=== PATIENT | male | born 1955 | race Caucasian/White ===

== ENCOUNTER → 2016-08-22 | Outpatient (CLI) | payer OTHER ==
[~2016-08-22] MED LIST: FLEXERIL PO; ISENTRESS100 MG PO; LEVAQUIN 750 M750 MG PO; LEXIVA700 MG PO; NAPROSYN500 M1 PO; NORCO 5-325 TA1 EACH PO; NORVIR100 MG PO; PRAVASTATIN SOD20 MG PO; TRUVADA1 EAC1 PO
== END ==
LOC: CAT 18:09
DX: L03.213 Periorbital cellulitis (principal); R60.9 Edema, unspecified

== ENCOUNTER → 2017-06-27 | Outpatient (CLI) | payer OTHER | LOC: RAD 10:50 | DX: M41.84 Other forms of scoliosis, thoracic region (principal); R53.82 Chronic fatigue, unspecified ==

== ENCOUNTER 2018-12-17 19:08 | Inpatient (IN) | payer OTHER ==
[~2018-12-17] VITALS: Ht 175.3 cm; Wt 68.9 kg
[2018-12-17 19:12] VITALS: BP 123/73
[2018-12-17] MEDS ORDERED: AMLODIPINE BESY10 MG PO (19:19)
[2018-12-17] MEDS ORDERED: GENVOYA TABLET1 EACH PO (19:19)
[2018-12-17] MEDS ORDERED: FLOMAX0.4 MG PO (19:20)
[2018-12-17 20:15] LABS: HEMATOCRIT 39.6 % (42.0-52.0); HEMOGLOBIN 13.6 gm/dL (14.0-18.0); MCH 32.5 pg (26.0-34.0); MCHC 34.4 g/dL (28.0-37.0); MCV 94.4 fL (80.0-100.0); PLATELET COUNT 196 thou/uL (150-400); RDW 14.8 % (10.5-14.5); WBC 5.2 thou/uL (4.0-11.0)
[2018-12-17 20:22] LABS: ANION GAP 5 mmol/L (7-16); BUN 19 mg/dL (7-18); CALCIUM 8.7 mg/dL (8.5-10.1); CHLORIDE 102 mmol/L (98-107); CO2 33 mmol/L (21-32); CREATININE 1.5 mg/dL (0.7-1.3); GLUCOSE 110 mg/dL (74-106); POTASSIUM 3.1 mmol/L (3.5-5.1); SODIUM 140 mmol/L (136-145)
[2018-12-17 20:28] LABS: DIRECT BILIRUBIN < 0.1 mg/dL (<0.1-0.3); SGOT 30 U/L (15-37); SGPT 22 U/L (30-65); TOTAL BILIRUBIN 0.4 mg/dL (<0.1-1.0)
[2018-12-17 20:30] LABS: TROPONIN-I <0.06 ng/mL (<0.06)
[2018-12-17 20:46] LABS: APTT 25.6 Seconds (24.5-32.8); PROTIME 10.2 Seconds (9.3-11.4)
[2018-12-17 20:56] LABS: ABSOLUTE NEUTROPHILS 2.7 thou/uL (1.4-8.2)
[2018-12-17 20:57] LABS: PLATELET ESTIMATE NORMAL
[2018-12-17 22:47] VITALS: BP 106/64
[2018-12-17 23:06] VITALS: BP 106/64
[2018-12-17 23:27] VITALS: BP 115/69
--- NOTE | 2018-12-18 04:32 | NUR ---
Received pt from ED at 2145. Pt resting in bed. AOX4. VSS. Did well with orthostatic BP. Up at [place]. No skin issues. Has IV's on Right AC and Right FA. Informed Dr. Sharpe pt is on unit. Sent Stool and urine sample to lab. Pt NPO since midnight. Pt is on Isolation for rule out C.diff and none respiratory mrsa on previous hospital admission. No identified needs at the moment. Will continue to monitor.
[2018-12-18 04:45] VITALS: BP 78/42
[2018-12-18 06:10] VITALS: BP 91/51
[2018-12-18 07:48] VITALS: BP 88/42
--- NOTE | 2018-12-18 08:25 | EKG ---
[address] [place] [address] ELECTROCARDIOGRAM REPORT Name: CHONG CLARK Room #: 453-P ADM IN M.R.#: [id number] ������������������ Admission: 12/17/18 ������������������ Attend Phys: Mars Sharpe MD Discharge: ������������������ Date of : 53 Report #: [id number] ����������������������������������������������������������������� [id number] THIS REPORT FOR: //name// [facility] ED Test Date: 2018-12-17 Test Time: 19:59:45 Pat Name: CHONG CLARK Department: Room: [facility] Gender: M Elderly Companion: [email or web address] : 1955 Requested By: Chong Kline Order Number: [id number] MD: Tony Reddy Measurements Intervals [place] Rate: 90 P: 81 TN: 124 QRS: 92 QRSD: 97 T: 67 QT: 355 QTc: 435 Interpretive Statements Sinus rhythm Right axis deviation Nonspecific ST segment abnormality No previous ECG available for comparison Electronically Signed On 12-18-2018 8:25:42 CDT by Tony Reddy [email or web address] ��������������������������������������������� <ELECTRONICALLY SIGNED> ���������������������������������������� By: Tony Reddy MD, [facility] ��������������������������������������������� 12/18/18824 58 58 Tony Reddy MD, FACC /EPI
[2018-12-18 12:44] LABS: HEMATOCRIT 33.7 % (42.0-52.0); HEMOGLOBIN 11.5 gm/dL (14.0-18.0); MCH 32.8 pg (26.0-34.0); MCHC 34.3 g/dL (28.0-37.0); MCV 95.7 fL (80.0-100.0); PLATELET COUNT 164 thou/uL (150-400); RBC 3.52 mil/uL (4.50-6.00); RDW 15.2 % (10.5-14.5); WBC 3.9 thou/uL (4.0-11.0)
[2018-12-18 13:08] LABS: ALBUMIN 2.4 g/dL (3.4-5.0); CALCIUM 8.1 mg/dL (8.5-10.1); CREATININE 1.3 mg/dL (0.7-1.3); TOTAL BILIRUBIN 0.2 mg/dL (<0.1-1.0); TOTAL PROTEIN 5.7 g/dL (6.4-8.2)
[2018-12-18 13:39] LABS: ABSOLUTE NEUTROPHILS 1.8 thou/uL (1.4-8.2); ANISOCYTOSIS SLIGHT; ATYPICAL LYMPHS 3 %; POIKILOCYTOSIS SLIGHT
--- NOTE | 2018-12-18 14:23 | NUR ---
PT ADMITTED RELATED TO Diarrhea, Nausea and Abd pain. CM REVIEWED CHART AND SPOKE WITH CARE TEAM. CM MET WITH PT AT BEDSIDE THIS DAY. PT IS A&O X4. CM ROLE INTRODUCED. PT INDICATED HE LIVES IN A HOUSE WITH HIS PARTNER WITH 12 STEPS TO ENTER AND 10 STEPS INSIDE. 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 PT INDICATED NO DME OR HH HX. PT INDICATED HE PLANS TO RETURN HOME ONCE MEDICALLY STABLE. CM TO FOLLOW INDICATED WITH DC PLANNING.
[2018-12-18 16:57] LABS: URINE BILIRUBIN NEGATIVE (Negative); URINE BLOOD NEGATIVE (Negative); URINE CLARITY CLEAR; URINE COLOR YELLOW; URINE GLUCOSE-RANDOM* NEGATIVE (Negative); URINE KETONES NEGATIVE (Negative); URINE LEUKOCYTES-REFLEX NEGATIVE (Negative); URINE NITRITE-REFLEX NEGATIVE (Negative); URINE PROTEIN (DIPSTICK) 1+ (Negative); URINE SPECIFIC GRAVITY <= 1.005 (1.005-1.035); URINE UROBILINOGEN 0.2 E.U./dl (0.2-1.0)
[2018-12-18 17:14] LABS: BACTERIA-REFLEX 1-9 Few /HPF (None Seen); CASTS None Seen /LPF (None Seen); CRYSTALS None Seen /LPF (None Seen); SQUAMOUS None Seen /LPF (0-3); URINE RBC None Seen /HPF (0-2); URINE WBC-REFLEX 0-5 Rare /HPF (0-5)
--- NOTE | 2018-12-18 20:10 | NUR ---
Received awake on bed. Due medications given as prescribed. On NPO- advised. With IVF- patent and infusing well. Maintained on isolation. Had CT abdomen w/Pelvis w/o contrast today. Patient with consult to Dr Gerard- US called in consults. Patient for stool sample- still waiting for pt to open bowels, for urinalysis with culture- specimen sent. With IV abx prescribed, given. Senior staff asked to insert new IV for antibiotics and IV fluids. Pharmacy staff came in and said than HIV meds are not stocked up in pharmacy, relative to bring in meds from home and to inform pharmacy once brought in- Handed over to night staff. Patient seen by GI doctor today- for EGD tomorrow, verified with GI lab, will have pt scheduled tomorrow at 8am-handed over to night staff, for NPO post midnight.
[2018-12-18 21:05] VITALS: BP 100/53
[2018-12-19 04:07] VITALS: BP 100/65
--- NOTE | 2018-12-19 05:42 | NUR ---
PATIENT ASSESSED AND IS ALERT X 4. WSKIN WARM AND DRY RESP EVEN AND UNLABORED. LUNGS CTA.DENIES ANY ABDOMEN PAIN THIS SHIFT. CONT ALL IV AND ANTIBIOTICS THROUGHOUT THE SHIFT. IV SITE [place] HEALTHY. NPO AFTER MIDNIGHT. HAD A SHOWER5 FOR AM SURGERY. SLEPT WELL. ON ROOM AIR. NO BM THIS SHIFT. HEART RATE STEADY AND REGULAR. UP WITH HELP TO BATHROOM BECAUSE OF IV'S.NO FEVER NOTED. CONT PLAN OF CARE.READY FOR SURGERY. NPO.
[2018-12-19 07:24] VITALS: BP 102/71
--- NOTE | 2018-12-19 07:45 | H ---
[facility] [place] [address] HISTORY AND PHYSICAL Name: CHONG CLARK Room #: 453-P ADM IN M.R.#: [id number] Admission: 12/17/18 ������������������ Attend Phys: Mars Sharpe MD Discharge: ������������������ Date of : 53 Report #: [id number] THIS REPORT FOR: //name// CC: Mars Posey DATE OF SERVICE: 12/18/2018 ATTENDING PHYSICIAN: Claudio Posey M.D. CHIEF COMPLAINT: Fever and diarrhea with blood loss. HISTORY OF PRESENT ILLNESS: The patient is a 63-year-old gentleman who presented to the Emergency Room last night with complaints of bloody stools for the last 3 days. There was report of a high temperature as well and some mild abdominal discomfort. He has had diarrhea off and on for 3 days and has passed dark blood-appearing stool at times. Overnight, he has received IV antibiotics and has had no further symptoms. PAST MEDICAL HISTORY: HIV infection, dyslipidemia, history of skin cancer, osteoarthritis, history of pneumonia and history of MRSA infection. He had hypertension. PAST SURGICAL HISTORY: Cholecystectomy, appendectomy, left rotator cuff and facial MRSA cellulitis in 2017. FAMILY HISTORY: Noncontributory. SOCIAL HISTORY: He has a prior tobacco history, none currently. No chronic alcohol use. ALLERGIES: None. MEDICATIONS: Albuterol, Flomax, naproxen, Crestor, amlodipine, Genvoya and tramadol. REVIEW OF SYSTEMS: Denies headache, chest pain, shortness of breath, abdominal pain, dysuria, syncope or fall. PHYSICAL EXAMINATION: VITAL SIGNS: Temperature 36.6, pulse 97, respirations 20, blood pressure 88/42 and O2 sat 97% on room air. GENERAL: He is awake and alert, lying in bed, in no distress. HEAD AND NECK: Unremarkable. LUNGS: Clear. HEART: Regular. [facility] [address] [place] [address] HISTORY AND PHYSICAL Name: CHONG CLARK Room #: 453-P ADM IN ..#: [id number] Admission: 12/17/18 ������������������ Attend Phys: Mars Sharpe MD Discharge: ������������������ Date of : 53 Report #: [id number] ABDOMEN: Soft. Normoactive bowel sounds. No rebound or guarding. EXTREMITIES: No cyanosis, clubbing or edema. NEUROLOGIC: Cranial nerves intact. Speech is fluent. Motor strength intact throughout. LABORATORY DATA: Albumin is 3. Creatinine was 1.5, BUN is 19 and potassium 3.1. White count was normal, but he did have a left shift with 19% bands. ASSESSMENT: 1. Melena. 2. Diarrhea, possible infectious source. 3. Hypertension. 4. Chronic human immunodeficiency virus infection. PLAN: CT of the abdomen will be obtained with IV fluid support and continued IV antibiotics. I spoke with Dr. Mars Sharpe regarding his situation. ��������������������������������������������� <ELECTRONICALLY SIGNED> ���������������������������������������� By: Eduardo Sorto MD ��������������������������������������������� 12/19/18 0745 1141 1153 Eduardo Sorto MD /linda
--- NOTE | 2018-12-19 08:00 | NUR ---
PT LEFT FOR EGD AROUND THIS TIME. PT LEFT VIA CART. PT NPO SINCE MIDNIGHT.
--- NOTE | 2018-12-19 10:30 | NUR ---
PT BACK FROM EGD AT THIS TIME. PT ALERT, RESTING WITH EYES CLOSED. PT ABLE TO HAVE REGULAR DIET AT THIS TIME.
--- NOTE | 2018-12-19 11:42 | HC ---
[facility] [place] [address] CONSULTATION Name: CHONG CLARK Room #: 453-P [facility] IN M.R.#: [id number] Admission: 12/17/18 ������������������ Attend Phys: Mars Sharpe MD Discharge: ������������������ Date of : 53 Report #: [id number] THIS REPORT FOR: //name// CC: MARS Snyder Kalpesh DATE OF SERVICE: 12/18/2018 REASON FOR CONSULTATION: The patient is a 63-year-old male who presented with fever and melanotic stools. HISTORY OF PRESENT ILLNESS: This patient reports that about 4 days ago, he had a black tarry stool. There is no prior history of ulcer disease. He does take 500 mg of naproxen daily. He did not have any significant abdominal pain. He reports 4 days ago, the stool was very black; however, it is a little bit metal tube cutter in color the past several days. He did not have any orthostatic complaints such as dizziness, lightheadedness or loss of consciousness. He reports, however, he came to the Emergency Room last evening because he had a fever of 104 degrees. It is of interest to note that there is not a mention of fever in the ER records and he has been completely afebrile since here in the hospital. In addition, his hemoglobin was 13.6 last evening, today was 11.5. Stool in the ER was reported weakly Hemoccult positive. With regard to the fever, he has not had any other complaints such as cough, chills, shortness of breath or rhinorrhea. It is noted he is HIV positive and is currently receiving treatment for HIV. PAST MEDICAL HISTORY: He has high blood pressure, elevated cholesterol and he does have HIV disease. PAST SURGICAL HISTORY: Laparoscopic cholecystectomy, appendectomy, rotator cuff surgery and removal of skin cancers, basal cell. ALLERGIES: No known drug allergies. MEDICATIONS: Usual home medications, naproxen 500 mg daily, pravastatin 20 mg daily, Genvoya 1 at bedtime, amlodipine 15 mg at bedtime, tamsulosin 0.4 mg at bedtime. FAMILY HISTORY: Father had colon cancer that was diagnosed in his mid 50s. SOCIAL HISTORY: He is retired, previously worked in a [employer] center. He quit smoking 4 years ago. He does not consume alcohol. [facility] [address] [place] [address] CONSULTATION Name: CHONG CLARK Room #: 453-P [facility] IN M.R.#: [id number] Admission: 12/17/18 ������������������ Attend Phys: Mars Sharpe MD Discharge: ������������������ Date of : 53 Report #: [id number] REVIEW OF SYSTEMS: GENERAL: Fever as noted above. He has not had any chills or weight loss. HEENT: No change in vision, hearing or sores in the mouth. CENTRAL NERVOUS SYSTEM: No focal weakness, numbness, loss of consciousness, seizures or strokes. PULMONARY: No cough, pneumonia or tuberculosis. CARDIOVASCULAR: No chest pain, chest tightness or palpitations. GASTROINTESTINAL: No nausea, vomiting, hematemesis. Black stool as noted above. He has had colonoscopies and polyps removed. Last colonoscopy was about a year ago. GENITOURINARY: He does take tamsulosin. Denies kidney problems or bladder problems. MUSCULOSKELETAL: Has arthritis in his hands. SKIN: Skin cancers removed. PSYCHIATRIC: No depression or bipolar illness. ENDOCRINE: He is not aware of diabetes or thyroid problems. No weight loss. HEMATOLOGIC: Skin cancers removed. No other cancers or blood dyscrasias. PHYSICAL EXAMINATION: GENERAL: The patient is a well-developed, well-nourished, pleasant male who is awake, alert and oriented, in no acute distress. VITAL SIGNS: Blood pressure 82/42. HEENT: Anicteric. Pupils equal, round. Oropharynx clear. NECK: Supple. CHEST: Clear. HEART: Regular rate and rhythm, normal S1 and S2. ABDOMEN: Normal bowel sounds, soft, nontender, without hepatosplenomegaly or masses. RECTAL: Not done. EXTREMITIES: Without cyanosis, clubbing or edema. NEUROLOGIC: Oriented to person, place and time. Moves all 4 extremities well. LABORATORY DATA: White count of 3.9, hemoglobin 11.5 down from 13.6, platelet count 164,000. INR normal at 1. Electrolytes notable for decreased potassium at 3.0, otherwise unremarkable. BUN and creatinine are unremarkable. LFTs are normal. Albumin 2.4. Stool is negative for C. difficile. ASSESSMENT: 1. Melena, use of nonsteroidals. 2. Human immunodeficiency virus disease. 3. Reported fever, none in the hospital. 4. High blood pressure. 5. Hypercholesterolemia. 6. Family history of colon cancer, father. 7. Personal history of colon polyps. [facility] [address] [place] [address] CONSULTATION Name: CHONG CLARK Room #: 453-P ADM IN M.R.#: [id number] Admission: 12/17/18 ������������������ Attend Phys: Mars Sharpe MD Discharge: ������������������ Date of : 53 Report #: [id number] RECOMMENDATIONS: 1. Continue to monitor hemoglobin. 2. Tentative plan potentially for upper endoscopy tomorrow. 3. PPI or H2 jonas. ��������������������������������������������� <ELECTRONICALLY SIGNED> ���������������������������������������� By: Malachi Bruno MD ��������������������������������������������� 12/19/18 1142 1428 0029 Malachi Bruno MD /nt
[2018-12-19 14:33] VITALS: BP 120/61
--- NOTE | 2018-12-19 15:39 | NUR ---
PT TOLERATING DIET, NO EMESIS OR PAIN COMPLAINTS.
[2018-12-19 20:12] VITALS: BP 109/61
[2018-12-20 04:30] VITALS: BP 111/54
[2018-12-20 04:57] LABS: HEMATOCRIT 37.3 % (42.0-52.0); HEMOGLOBIN 12.5 gm/dL (14.0-18.0); MCH 32.2 pg (26.0-34.0); MCHC 33.6 g/dL (28.0-37.0); MCV 95.7 fL (80.0-100.0); RBC 3.89 mil/uL (4.50-6.00); RDW 15.6 % (10.5-14.5); WBC 5.3 thou/uL (4.0-11.0)
--- NOTE | 2018-12-20 04:58 | NUR ---
Pt. rested quietly at intervals during the night when checked on during frequent rounds. He offers no c/o pain or nausea. No noted loose stools. Pt. requesting a xanax last night. Spoke with with new orders for xanax at (see cpoe).
[2018-12-20 05:08] LABS: CALCIUM 8.5 mg/dL (8.5-10.1); CREATININE 1.4 mg/dL (0.7-1.3); POTASSIUM 4.2 mmol/L (3.5-5.1)
[2018-12-20 08:00] VITALS: BP 126/77
[2018-12-20] MEDS ORDERED: OMEPRAZOLE40 MG PO (08:47)
[2018-12-20 10:26] VITALS: BP 126/77
--- NOTE | 2018-12-20 13:42 | P ---
[facility] [place] [address] PROCEDURE REPORT Name: CHONG CLARK Room #: 453-P [facility] IN M.R.#: [id number] Admission: 12/17/18 ������������������ Attend Phys: Mars Sharpe MD Discharge: ������������������ Date of : 53 Report #: [id number] THIS REPORT FOR: //name// CC: MARS Snyder Kalpesh UPPER ENDOSCOPY NOTE BRIEF HISTORY: The patient is a 63-year-old male who presented with fever, diarrhea and black stools. He does use naproxen on a daily basis. He also has HIV disease. PREOPERATIVE DIAGNOSES: Melena, diarrhea and fever. POSTOPERATIVE DIAGNOSES: 1. Erosive antral gastritis without bleeding. 2. Grade B erosive esophagitis. MEDICATIONS: Deep sedation with propofol per anesthesia. SPECIMEN: Biopsies of gastritis. ESTIMATED BLOOD LOSS: 3 mL. PROCEDURE: EGD with biopsy. FINDINGS: Prior to propofol sedation, the procedure of upper endoscopy was discussed with the patient as well as potential risks and its complications. He indicates he understands and desires to proceed. DESCRIPTION OF PROCEDURE: With the patient in the left lateral decubitus position, the Olympus video endoscope was inserted in the cervical esophagus under direct vision without difficulty. Examination of this organ through its entire length revealed normal esophageal mucosa down the squamocolumnar junction. The squamocolumnar junction was inspected. There were noted to be linear erosions extending up from the squamocolumnar junction in the distal body of the esophagus. There were a few scattered erosions in the distal body not connected to the squamocolumnar junction. Findings were consistent with a grade B erosive esophagitis. There was no evidence of Griggs mucosa. No strictures or masses were seen. A hiatus hernia was not seen. The scope was advanced into the stomach, which was examined on end view as well as retroflexed views. He does use naproxen daily. There were multiple erosions in the antrum. However, there was no blood in the stomach. No ulcers were seen. A bleeding lesion was not seen. The proximal stomach was examined on end view as well as retroflexed views and other than patchy erythema, no other abnormalities were identified. The pylorus was normal. Duodenal bulb was normal. Postbulbar duodenal sweep [address] [address] PROCEDURE REPORT Name: CHONG CLARK Room #: 453-P [facility] IN M.R.#: [id number] Admission: 12/17/18 ������������������ Attend Phys: Mars Sharpe MD Discharge: ������������������ Date of : 53 Report #: [id number] down to the third portion was normal. No bleeding was seen on this examination. At that point, the scope was slowly withdrawn and careful circumferential views confirmed the above findings. The patient tolerated the procedure well. Biopsies obtained of the gastritis. DISPOSITION: The patient with melena, fever and diarrhea with use of nonsteroidals. I do not see a bleeding lesion on today's exam. CT reveals evidence of colitis. I suspect the blood likely came from the colon. I do not see any worrisome lesions in his stomach. However, he does have esophagitis. In view of his HIV medicines, we will try to manage with an H2 jonas rather than a PPI. Depending on his clinical course, I could consider colonoscopy sooner urgently or later if needed. He has had a number of colonoscopies in the past due to a family history of colon cancer. He reports that his last colonoscopy was done about a year or so ago and was negative per his report. ��������������������������������������������� <ELECTRONICALLY SIGNED> ���������������������������������������� By: Malachi Bruno MD ��������������������������������������������� 12/20/18 1342 0828 03 Malachi Bruno MD /nt
--- NOTE | 2018-12-21 12:50 | HC ---
[facility] [place] [address] CONSULTATION Name: CHONG CLARK Room #: 453-P [facility] IN M.R.#: [id number] Admission: 12/17/18 ������������������ Attend Phys: Mars Sharpe MD Discharge: 12/20/18 ������������������ Date of : 53 Report #: [id number] THIS REPORT FOR: //name// CC: Mars Snyder Kalpesh DATE OF SERVICE: 12/18/2018 INFECTIOUS DISEASES CONSULTATION REASON FOR CONSULTATION: I was asked to evaluate the patient concerning fever and diarrhea in the setting of HIV infection. HISTORY OF PRESENT ILLNESS: The patient was 63 years old who presented to the Emergency Room last evening with a 5-day history of fever, chills, anorexia and diarrhea. Onset was rather acute. He has had dark stools, which he thought had some blood in it. No nausea or vomiting. Minimal cough. No dysuria or frequency. No rashes or change in his degenerative arthritis symptoms. No dysuria or frequency. He has had a previous history of prostatitis, but he does not feel like it feels like that. HIV has been under control. He has had no dining at restaurants, leading up to his presentation. His partner has been without symptoms. He has had no tenesmus or urgency. ALLERGIES: None. MEDICATIONS: As noted on his MAR, including albuterol, Flomax, Naprosyn, Crestor, amlodipine, Genvoya and Tramadol. 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 FAMILY HISTORY: Noncontributory. SOCIAL HISTORY: Past smoker. No significant alcohol intake. REVIEW OF SYSTEMS: Ten-point review was negative, other than what is described above. PHYSICAL EXAMINATION: VITAL SIGNS: Afebrile. Pulse was 97, blood pressure 88/42. Maximum temperature here has been 98.4 degrees. Last evening, it went up to 104 degrees. He has had no further chills. [facility] [address] [place] [address] CONSULTATION Name: CHONG CLARK Room #: 453-P [facility] IN M.R.#: [id number] Admission: 12/17/18 ������������������ Attend Phys: Mars Sharpe MD Discharge: 12/20/18 ������������������ Date of : 53 Report #: [id number] SKIN: Without rash or decubitus. No palpable adenopathy. HEENT: Eyes, without scleral icterus. Mouth without mucositis. NECK: Supple. LUNGS: Clear. HEART: Regular, without murmur, gallop or rub. ABDOMEN: Soft, nontender. No hepatosplenomegaly or mass. GENITOURINARY: External genitalia without lesion or mass. RECTAL EXAMINATION: Without prosthetic tenderness, lesion or mass. EXTREMITIES: Without clubbing, cyanosis or edema. NEUROLOGICAL EXAMINATION: Nonfocal, including cranial nerves as well as strength in the upper and lower extremities and sensation to touch in the upper and lower extremities. PSYCHIATRIC: Mood was normal. LABORATORY STUDIES: Hemoglobin 11.5, WBC 3.9 and platelet count 164,000. Urinalysis not done. Creatinine 1.3. Liver function test normal. CT scan of the abdomen and pelvis pending. Blood culture is pending. Stool culture pending. C. difficile PCR pending. IMPRESSION: A 63-year-old, human immunodeficiency virus infected, under good control, presents with symptoms of colitis associated with ongoing fever. Source is yet to be determined. He has a history of prostatitis, but I am not getting any sense of that at this point. His prostate was nontender on examination. RECOMMENDATIONS: Continue his current antiretroviral program, obtain cultures of stool O and P and C. diff. Obtain urinalysis and urine culture. Arrange CT scan of his abdomen and pelvis. Continue with Zosyn, pending further studies. Serial laboratory studies. If no improvement, we will need GI service to assess for endoscopy. ��������������������������������������������� <ELECTRONICALLY SIGNED> ���������������������������������������� By: Mars Sharpe MD ��������������������������������������������� 12/21/18 1250 1332 2321 Mars Sharpe MD /nt
--- NOTE | 2018-12-23 16:01 | PATH ---
[facility] [address] [place] [address] PATHOLOGY RPT PROCEDURE Name: CHONG CLARK Room #: 453-P [facility] IN M.R.#: [id number] ������������������ Admission: 12/17/18 ������������������ Date of : 53 Discharge: 12/20/18 Report #: [id number] Path Case #: [id number] [facility] Accession Number: [id number] . 01 Material submitted: . stomach - BX OF GASTRITIS . 01 Clinical history: . Melena black stools . 02 Diagnosis: Gastric biopsy, "biopsy of gastritis": - Mild chronic reactive gastropathy. - No acute ulceration seen. - The immunoperoxidase stain for Helicobacter pylori is negative. (SHA:marichuy; 12/23/2018) MBR/12/23/2018 . 02 Electronically signed: . Noman Lai MD, Pathologist NPI- [id number] . 01 Gross description: . The specimen is received in formalin, labeled "Chong Clark, BX of gastritis" and consists of 5 fragments of alex tissue measuring 1.1 x 0.6 x 0.3 cm in aggregate which are entirely submitted in A1. (SDY; 12/22/2018) SYU/SYU . 02 Pathologist provided ICD-10: K31.9 . 02 CPT . 891026, K09044 Specimen Comment: A courtesy copy of this report has been sent to Specimen Comment: [phone], , . Specimen Comment: Report sent to ,DR QUIROS / DR MCFARLNAE Performed at: [address], [place] [id number] MD Nate Bernal MD Phone: [phone] Performed at: [address] [id number] MD Patricia Williamson MD Phone: [phone]
== END 2018-12-20 11:30 | disposition home or self-care (01) | DRG 382 ==
LOC: ER 19:08 → 4W 22:14 → EROBS 22:14 → 4W 23:11
PROVIDERS: Emergency Medicine; Internal Medicine Geriatric Medicine; ADMIT Specialist
PROC: 0DB68ZX Excision of Stomach, Via Natural or Artificial Opening Endoscopic, Diagnostic (ICD-10-PCS; principal; 2018-12-19)
DX: K22.10 Ulcer of esophagus without bleeding (principal); Z21 Asymptomatic human immunodeficiency virus [HIV] infection status; K92.1 Melena; K29.00 Acute gastritis without bleeding; K52.9 Noninfective gastroenteritis and colitis, unspecified; I95.9 Hypotension, unspecified; K21.0 Gastro-esophageal reflux disease with esophagitis; E78.00 Pure hypercholesterolemia, unspecified; D64.9 Anemia, unspecified; E78.5 Hyperlipidemia, unspecified; M19.90 Unspecified osteoarthritis, unspecified site; Z85.828 Personal history of other malignant neoplasm of skin; Z87.891 Personal history of nicotine dependence; Z86.14 Personal history of Methicillin resistant Staphylococcus aureus infection; Z87.01 Personal history of pneumonia (recurrent); Z90.49 Acquired absence of other specified parts of digestive tract; Z79.899 Other long term (current) drug therapy; Z86.010 Personal history of colon polyps; Z80.0 Family history of malignant neoplasm of digestive organs
CPT/HCPCS: 10040; 10045; 62110; 62900; 70005